=== PATIENT | male | born 1960 | race African-American/Black ===

== ENCOUNTER 2018-02-11 11:31 | Outpatient (CLI) | payer OTHER | END 2018-02-11 11:32 | disposition home or self-care (01) | LOC: BICRAD 11:31 | PROVIDERS: ATTEND Internal Medicine | DX: Z02.71 Encounter for disability determination (principal); M77.31 Calcaneal spur, right foot; M19.071 Primary osteoarthritis, right ankle and foot; M43.16 Spondylolisthesis, lumbar region; Z98.890 Other specified postprocedural states | CPT/HCPCS: 72100 ==